=== PATIENT | male | born 1940 | race Two or more races ===

== ENCOUNTER 2019-09-11 09:56 | Outpatient (CLI) | payer MEDICARE, BC ==
[~2019-09-11] VITALS: Ht 162.6 cm; Wt 67.6 kg
[2019-09-11 12:34] VITALS: BP 129/60
[2019-09-11] MEDS ORDERED: HYDREA500 MG PO (12:34)
[2019-09-11] MEDS ORDERED: ALFUZOSIN HCL10 MG PO (12:34)
[2019-09-11] MEDS ORDERED: OMEPRAZOLE20 M2 ORAL (12:34)
[2019-09-11] MEDS ORDERED: METOPROLOL SUCC25 MG ORAL (12:34)
[2019-09-11] MEDS ORDERED: COSAMIN DS TAB1 EAC1 PO (12:34)
[2019-09-11] MEDS ORDERED: FISH OIL CAP1000 MG ORAL (12:34)
[2019-09-11] MEDS ORDERED: TEMAZEPAM15 MG ORAL (12:34)
[2019-09-11] MEDS ORDERED: PROSCAR5 MG ORAL (12:34)
[2019-09-11] MEDS ORDERED: LOSARTAN POTASS25 MG ORAL (12:34)
[2019-09-11] MEDS ORDERED: CALCIUM500 M3 PO (12:34)
[2019-09-11] MEDS ORDERED: ASPIRIN EC81 MG ORAL (12:34)
--- NOTE | 2019-09-11 16:30 | Consultation ---
DATE OF CONSULTATION: 09/11/2019 CHIEF COMPLAINT: Abdominal pain and bloating. HISTORY OF PRESENT ILLNESS: The patient is an 79-year-old male with numerous medical problems, which I will give you in a second, came to office for evaluation of bloating and abdominal pain. On talking to the son and the patient, it seems that the patient is short of breath very early after few steps and need to sit down and struggle to grab his air and he thinks this the from the gas in his abdomen. This is going on for last few months. PAST MEDICAL HISTORY: 1. Some kind of heart surgery for aorta surgery according to him and he is followed by Cardiology. 2. BPH. 3. GERD. 4. History of hematological problems, he does not exactly know which one and followed by Dr. Elisa Lomeli. PAST SURGICAL HISTORY: 1. Open heart surgery 2016, most probably aortic surgery according to him. 2. Cholecystectomy. MEDICATIONS: Please see medication reconciliation list. ALLERGIES: No known drug allergies. FAMILY HISTORY: Noncontributory. SOCIAL HISTORY: The patient drinks socially. tobacco or drug abuse. REVIEW OF SYSTEMS: A 10-point review of systems was performed and pertinent positives in HPI. PHYSICAL EXAMINATION: VITAL SIGNS: Temperature 98.4, blood pressure 129/60, pulse 70, respirations 20. HEENT: Normocephalic and atraumatic. Sclerae anicteric. NECK: Supple. No evidence of obvious lymphadenopathy. CARDIOVASCULAR: Regular rate and rhythm. Plus S1 and S2. There is a soft systolic murmur in left sternal border LUNGS: The patient had evidence of mild crackles from the left base of the lung. ABDOMEN: Soft and nontender. No rebound. No guarding. No peritoneal sign. EXTREMITIES: No cyanosis. No clubbing. No edema ASSESSMENT: This is an 79-year-old male with the above medical problems. I doubt that he his shortness of breath is from the gas from his abdomen that he claimed causes significant shortness of breath. I explained to him that it might be cardiac given he had a murmur. He has the left pleural effusion on exam. I called the architectural engineer that followed him. I made an appointment for him to see his architectural engineer today. I have also given him prescription for Xifaxan for 14 days with two refills. I want the patient to come back in a month after seen and evaluated by architectural engineer to see if he needs repeat colonoscopy and if he responded to Xifaxan. Scott Lopez M.D. DR: Consuelo JOB#: [id number] CC:
== END 2019-09-11 11:56 | disposition home or self-care (01) ==
LOC: PAN 09:56
DX: R10.9 Unspecified abdominal pain (principal); R14.0 Abdominal distension (gaseous); K21.9 Gastro-esophageal reflux disease without esophagitis; Z90.49 Acquired absence of other specified parts of digestive tract; R06.02 Shortness of breath